=== PATIENT | female | born 1980 | race Caucasian/White ===

== ENCOUNTER 2016-06-30 12:10 | Emergency (ER) | payer MEDICAID ==
[2016-06-30 12:45] VITALS: BP 139/78; PULSE 93; BMI 26.0
--- NOTE | 2016-06-30 12:50 | EDPRACDOC ---
- General Information Chief Complaint: Ankle Pain Stated Complaint: FELL INJURED RT FOOT HX OF HARDWARE Time Seen by Provider: 06/30/16 12:45 Home Medications: Home Medications Ibuprofen Tablet [Motrin] 800 mg PO TID PRN #30 tab 06/30/16 Allergies/Adverse Reactions: Allergies Allergy/AdvReac Type Severity Reaction Status Date / Time codeine [Codeine] Allergy Unknown Unknown/See Verified 06/30/16 12:50 Comments latex Allergy Unknown Unknown/See Verified 06/30/16 12:50 Comments tramadol Allergy See Verified 06/30/16 12:50 Comments TORADOL Allergy See Uncoded 06/30/16 12:50 Comments BEE STING AdvReac Severe THROAT Uncoded 06/30/16 12:50 SWELLING - History of Present Illness Onset: SWEDGER HPI: PT STATES THAT THE BOTTOM STEP BROKE AND SHE FELL, STATES RIGHT ANKLE "WENT UNDER" WHEN SHE FELL, COMPLAINS OF SHARP, STABBING, SEVERE PAIN TO RIGHT ANKLE AND FOOT, PAIN WORSE WITH WEIGHT BEARING, RADIATES UP TO HER HIP. NO LOC, NO NECK OR BACK PAIN. Ankle Problem Location: Reports: Right, Lateral, Anterior Mechanism: Reports: Inversion Circumstances: Reports: Fall Tetanus Up To Date?: No Able to Bear Weight: Limited Pain Severity: Reports: Severe Associated Signs & Symptoms: Reports: Bruising, Swelling, Foot Pain ED Past Medical History - History Reviewed Yes Nurses notes reviewed and agree except as marked - Patient Medical History Psychological History: Denies: Depression Systemic History: Reports: Cancer (Cervical and ovarian) Surgical History: Reports: Other (multiple orthopedic surgeries) - Social Medical History Smoking Status: Current some day smoker EDM Review of Systems - Review of Systems Neurological: negative: Dizziness, Numbness, Weakness Musculoskeletal: Ankle, Foot Integumentary: Bruising - Physical Exam Constitutional: Alert (Awake), No apparent distress Oriented to: Time, Person, Place Last recorded Vital Signs: Last Vital Signs Temp Pulse 93 06/30/16 12:45 Resp 18 06/30/16 12:45 BP 139/78 06/30/16 12:45 Pulse Ox 97 06/30/16 12:45 Oxygen Pulse Oxygen Saturation 97 O2 Device Room Air Oxygen Flow Rate Fraction of Inspired Oxygen ( FIO2) - HEENT Head: Normal ( normocephalic) - Neurologic Memory Impaired: Normal Motor Function: Normal (Normal tone, Pulses 2+ No cyanosis or edema, FROM) Cranial Nerve: Normal (CN II-X11 intact sensation, strength 5/5) Cerebellar: Normal Mood Description: Normal Perception: Normal ED Ankle Problem Phys Exam - Musculoskeletal Ankle: Swelling, Limited ROM, Moderate Tenderness (MEDIALLY AND LATERALLY) Achilles Tendon: Normal Knee: Normal. negative: Swelling, Deformity Lower Leg: Normal. negative: Swelling, Deformity Foot: Swelling, Ecchymosis, Limited ROM, Moderate Tenderness Distal Function/Circulation: Normal, Capillary Refill. negative: Motor Deficit , Pulse Deficit (DP AND PT PULSES INTACT BY DOPPLER), Sensory Deficit - Integumentary Skin: Ecchymosis - Differential Diagnosis Contusion, Fracture, Sprain - Diagnostic Imaging RIGHT FOOT Image interpreted by: Radiologist RIGHT FOOT COMPLETE - 3+ VIEW COMPARISON: None. FINDINGS: There is a metal intra medullary shanell within the fibula. No acute fracture. No dislocation. There is deformity at the base of the second metatarsal which may be related to prior injury. Sclerotic changes in the distal tibia are again felt to be related to prior trauma with healed deformity. IMPRESSION: No acute bony pathology. Chronic changes are noted. RIGHT ANKLE Image interpreted by: Radiologist RIGHT ANKLE - COMPLETE 3+ VIEW COMPARISON: 02/26/2016 FINDINGS: Intramedullary shanell unchanged over the fibula. Moderate bony remodeling over the distal tibia and fibula unchanged. Degenerative changes over the ankle mortise which are stable. No evidence of acute fracture dislocation. Remainder of the exam is unchanged. IMPRESSION: No acute findings. Chronic stable findings as described. Decision Time to Discharge: 13:52 - Departure Disposition: Home Condition: Stable Final Diagnosis: Right ankle sprain Qualifiers: Encounter type: initial encounter Involved ligament of ankle: unspecified ligament Qualified Code(s): S93.401A - Sprain of unspecified ligament of right ankle, initial encounter Instructions: RICE: Routine Care for Injuries, Ankle Sprain (ED) Education/Counseling Given To: Patient Education/Counseling Given Regarding: Diagnosis, Treatment, Prognosis, Follow Up Referrals: Wilber Ge MD [Staff Physician] - One Week Prescriptions: Ibuprofen Tablet [Motrin] 800 mg PO TID PRN #30 tab PRN Reason: Pain Additional Instructions: WEAR MASOUD WRAP NEEDED FOR COMFORT, ELEVATE YOUR ANKLE AND APPLY COLD COMPRESSES NEEDED FOR PAIN AND SWELLING.
[2016-06-30] MEDS ORDERED: IBUPROFEN 800 MG TAB PO ONE (13:38)
--- NOTE | 2016-06-30 13:41 | DIRPT ---
CLINICAL DATA: Fall today with right foot and ankle pain. EXAM: RIGHT ANKLE - COMPLETE 3+ VIEW COMPARISON: 02/26/2016 FINDINGS: Intramedullary shanell unchanged over the fibula. Moderate bony remodeling over the distal tibia and fibula unchanged. Degenerative changes over the ankle mortise which are stable. No evidence of acute fracture dislocation. Remainder of the exam is unchanged. IMPRESSION: No acute findings. Chronic stable findings as described. Electronically Signed By: Robb Wei M.D. On: 06/30/2016 13:39
--- NOTE | 2016-06-30 13:42 | DIRPT ---
CLINICAL DATA: Fall EXAM: RIGHT FOOT COMPLETE - 3+ VIEW COMPARISON: None. FINDINGS: There is a metal intra medullary shanell within the fibula. No acute fracture. No dislocation. There is deformity at the base of the second metatarsal which may be related to prior injury. Sclerotic changes in the distal tibia are again felt to be related to prior trauma with healed deformity. IMPRESSION: No acute bony pathology. Chronic changes are noted. Electronically Signed By: Domenico Grullon M.D. On: 06/30/2016 13:39
== END 2016-06-30 14:06 | disposition home or self-care (01) ==
LOC: EDMC 12:10
DX: S93.401A Sprain of unspecified ligament of right ankle, initial encounter (principal); W10.9XXA Fall (on) (from) unspecified stairs and steps, initial encounter; Y93.89 Activity, other specified
CPT/HCPCS: 73610; 73630; 99283; J3490